=== PATIENT | male | born 1965 | race Caucasian/White ===

== ENCOUNTER 2017-07-25 09:24 | Emergency (ER) | payer OTHER ==
[~2017-07-25] VITALS: Ht 182.9 cm; Wt 110.2 kg
[~2017-07-25 09:24] MED LIST: CLARITIN10 M3 PO
[2017-07-25] MEDS ORDERED: NORCO 5/3251 TABLET PO (09:54)
[2017-07-25 10:21] VITALS: BP 148/95
== END 2017-07-25 10:22 | disposition home or self-care (01) ==
LOC: EME 09:24
DX: S16.1XXA Strain of muscle, fascia and tendon at neck level, initial encounter (principal); M54.9 Dorsalgia, unspecified; G89.29 Other chronic pain
CPT/HCPCS: 99281; 99284